=== PATIENT | female | born 1985 | race Caucasian/White ===

== ENCOUNTER 2016-11-21 12:03 | Emergency (ER) | payer OTHER ==
[~2016-11-21] VITALS: Ht 157.5 cm; Wt 77.0 kg
[2016-11-21] MEDS ORDERED: KETOROLAC TROMETHAMINE 30 MG/ML VIAL IVP ONE (13:15)
[2016-11-21] MEDS: KETOROLAC TROMETHAMINE 30 MG/ML VIAL IM ONE (13:23)
[2016-11-21 13:53] VITALS: BP 137/66
== END 2016-11-21 13:59 | disposition home or self-care (01) ==
LOC: EMS 12:05
DX: S86.892A Other injury of other muscle(s) and tendon(s) at lower leg level, left leg, initial encounter (principal); X58.XXXA Exposure to other specified factors, initial encounter; Y93.89 Activity, other specified; Y92.89 Other specified places as the place of occurrence of the external cause; Y99.8 Other external cause status
CPT/HCPCS: 96372; 99283; J1885

== ENCOUNTER 2021-07-30 20:10 | Emergency (ER) | payer OTHER ==
[~2021-07-30] VITALS: Ht 157.5 cm; Wt 68.2 kg
[2021-07-30] MEDS ORDERED: ACETAMINOPHEN 500 MG TABLET PO ONE (20:45)
[2021-07-30 22:07] VITALS: BP 128/88
== END 2021-07-30 22:07 | disposition home or self-care (01) ==
LOC: EMS 20:15
DX: S01.112A Laceration without foreign body of left eyelid and periocular area, initial encounter (principal); S09.90XA Unspecified injury of head, initial encounter; Y04.0XXA Assault by unarmed brawl or fight, initial encounter; Y93.89 Activity, other specified; Y92.89 Other specified places as the place of occurrence of the external cause; Y99.8 Other external cause status
CPT/HCPCS: 70450; 70486; 99284

== ENCOUNTER 2021-09-02 09:37 | Emergency (ER) | payer OTHER ==
[~2021-09-02] VITALS: Ht 157.5 cm; Wt 63.6 kg
[2021-09-02 10:14] LABS: COVID AG,FIA SOURCE NASOPHARYNGEAL
[2021-09-02] MEDS ORDERED: ACETAMINOPHEN 500 MG TABLET PO ONE (10:15)
[2021-09-02] MEDS ORDERED: ACETAMINOPHEN 325 MG TABLET PO ONE (10:15)
[2021-09-02 11:20] VITALS: BP 134/96
== END 2021-09-02 11:47 | disposition home or self-care (01) ==
LOC: EMS 09:37
DX: U07.1 COVID-19 (principal); Z79.899 Other long term (current) drug therapy
CPT/HCPCS: 93005; 99284; Z7502; Z7610

== ENCOUNTER 2023-11-26 21:54 | Emergency (ER) | payer OTHER ==
[~2023-11-26] VITALS: Ht 157.5 cm; Wt 84.1 kg
[2023-11-26 22:51] VITALS: BP 135/105; PULSE 67; RESP 16; TEMP 98
[2023-11-27] MEDS: ACETAMINOPHEN 500 MG TABLET PO ONE (00:10)
== END 2023-11-27 01:39 | disposition home or self-care (01) ==
LOC: EMS 21:57
DX: S83.402A Sprain of unspecified collateral ligament of left knee, initial encounter (principal); X58.XXXA Exposure to other specified factors, initial encounter; Y93.66 Activity, soccer; Y92.89 Other specified places as the place of occurrence of the external cause; Y99.8 Other external cause status
CPT/HCPCS: 29505; 99283